=== PATIENT | male | born 1975 | race Caucasian/White ===

== ENCOUNTER 2019-01-05 19:30 | Emergency (ER) | payer SELFPAY ==
--- NOTE | 2019-01-05 20:05 | CT ---
FCT head without contrast: Multiple axial tomograms obtained through the head without IV enhancement. INDICATIONS: Trauma COMPARISON: None FINDINGS: Ventricles have normal size and position. No evidence of intracranial mass, hemorrhage, edema, or infarct. Visualized sinuses and mastoids appear clear. Bony calvarium appears unremarkable. IMPRESSION: No acute finding
--- NOTE | 2019-01-05 20:07 | CT ---
FCT cervical spine without contrast: Multiple axial tones obtained through cervical spine with multiplanar reconstruction. INDICATIONS: trauma with cervical spine injury COMPARISON: none FINDINGS: Cervical vertebra maintain normal height and alignment.. Disc spaces are normal. Posterior elements are normally aligned. No evidence of fracture. IMPRESSION: No acute finding
--- NOTE | 2019-01-05 20:36 | RAD ---
FEXAM: Chest PA and lateral: HISTORY: Injury. Trauma COMPARISON: none FINDINGS: Lung cunningham are clear. Vascular markings are normal. Heart and mediastinum appear unremarkable. Vascularity is normal. Evidence of prior trauma and postoperative change the right shoulder. IMPRESSION: No acute finding
--- NOTE | 2019-01-05 20:37 | RAD ---
FEXAM: Right shoulder: 3 views INDICATIONS: Trauma COMPARISON: None. FINDINGS: Deformity of the distal right clavicle with hypertrophic changes AC joint and at the acromi oclavicular ligament. Cerclage wire overlying distal clavicle. No acute fracture or dislocation. Dege nerative changes noted. IMPRESSION: Evidence of prior injury and surgery. No acute process apparent.
== END 2019-01-05 21:10 ==
LOC: MADERS 19:30
DX: S43.401A Unspecified sprain of right shoulder joint, initial encounter (principal); V49.9XXA Car occupant (driver) (passenger) injured in unspecified traffic accident, initial encounter
CPT/HCPCS: 70450; 71046; 72125